=== PATIENT | female | born 1995 | race Caucasian/White ===

== ENCOUNTER 2018-07-04 02:54 | Observation (INO) | payer BC ==
[2018-07-04] MEDS ORDERED: NS 1,000 ML IV ONE ×2 (03:17→05:00)
[2018-07-04] MEDS ORDERED: ONDANSETRON 4 MG/2 ML VIAL ONE ×2 (03:19→10:47)
[2018-07-04] MEDS ORDERED: ONDANSETRON 4 MG/2 ML VIAL IVP ONE (03:22)
[2018-07-04] MEDS ORDERED: HYDROmorphONE/DILAUDID 2 MG/ML INJ IVP ONE (03:22)
--- NOTE | 2018-07-04 03:24 | EDPHY ---
H & P Stated Complaint: GENERAL ABD PAIN X 4 HRS Time Seen by Provider: 07/04/18 03:23 HPI/ROS: HPI CHIEF COMPLAINT: Abdominal pain HISTORY OF PRESENT ILLNESS: This is a 22-year-old female presents emergency room 5 hr of abdominal pain rather diffuse. States approximately 8 hr ago she noticed some upset stomach and cramps but no vomiting. Than her symptoms persisted now she has worsening abdominal pain over the last 4-5 hours. Nausea but no vomiting. Denies diarrhea denies back pain. Patient denies chest pain or shortness of breath she describes as sharp stabbing pain throughout her abdomen. She denies anyone focal area being tender. Denies urinary symptoms. Denies being . Past Medical History: Denies significant medical history Past Surgical History: Denies significant surgical history Social History: Denies drugs alcohol tobacco. Family History: Noncontributory ROS REVIEW OF SYSTEMS: 10 Systems were reviewed and negative with the exception of the elements mentioned in the history of present illness. Exam Constitutional triage nursing summary reviewed, vital signs reviewed, awake/ alert. Vital signs stable triage. Eyes normal conjunctivae and sclera, EOMI, PERRLA. HENT normal inspection, atraumatic, moist mucus membranes, no epistaxis, neck supple/ no meningismus, no raccoon eyes. Respiratory clear to auscultation bilaterally, normal breath sounds, no respiratory distress, no wheezing. Cardiovascular rate normal, regular rhythm, no murmur, no edema, distal pulses normal. Gastrointestinal mildly tender diffusely, no peritoneal signs no rebound, no guarding, normal bowel sounds, no distension, no pulsatile mass. Genitourinary no CVA tenderness. Musculoskeletal no midline vertebral tenderness, full range of motion, no calf swelling, no tenderness of extremities, no meningismus, good pulses, neurovascularly intact. Skin pink, warm, & dry, no rash, skin atraumatic. Neurologic awake, alert and oriented x 3, AAOx3, moves all 4 extremities equally, motor intact, sensory intact, CN II-XII intact, normal cerebellar, normal vision, normal speech. Psychiatric normal mood/affect. Heme/Lymph/Immune no lymphadenopathy. Differential Diagnosis: Differential diagnosis includes but is not limited to and in no particular order: Bowel obstruction, appendicitis, gallbladder disease, diverticulitis, colitis, enteritis, perforated viscus, gastritis, GERD , esophagitis, urinary tract infection, pyelonephritis, kidney stones Medical Decision Making: Plan for this patient IV establishment with IV fluid bolus, IV Dilaudid for pain control IV Zofran for nausea, basic blood work, urinalysis, test, CT scan abdomen pelvis with IV contrast rule out acute appendicitis. Re-evaluation: CT scan abdomen pelvis with IV contrast faxed to me at 4:51 a.m., by [facility] This shows an appendix that is fluid-filled and dilated 9 mm, maybe mild surrounding fat stranding. Please see full dictation of the CT report. Clinically the patient having a white count of this high, abdominal pain rather diffuse and then localized right lower quadrant I think she has a acute appendicitis. Less likely PID. Patient denies any significant vaginal discharge or urinary symptoms, denies any pelvic pain. Pain is located up in her upper abdomen localized into her right lower quadrant. Think PID is unlikely. 0506: I have consult General surgery Dr. Talamantes for acute appendicitis. He will review the patient's scan and evaluate the patient. 2nd L fluid ordered. IV Invanz ordered. Source: Patient - Personal History LMP (Females 10-55): Over 28 Days Ago Current Tetanus Diphtheria and Acellular Pertussis (TDAP): Yes - Medical/Surgical History Hx Asthma: No Hx Chronic Respiratory Disease: No Hx Diabetes: No Hx Cardiac Disease: No Hx Renal Disease: No Hx Cirrhosis: No Hx Alcoholism: No Hx HIV/AIDS: No Hx Splenectomy or Spleen Trauma: No Other PMH: DENIES - Social History Smoking Status: Never smoked Constitutional: Initial Vital Signs Temperature (C) 36.4 C 07/04/18 02:58 Heart Rate 77 07/04/18 02:58 Respiratory Rate 16 07/04/18 02:58 Blood Pressure 111/62 07/04/18 02:58 O2 Sat (%) 97 07/04/18 02:58 O2 Delivery Mode Room Air Allergies/Adverse Reactions: No Known Allergies Allergy (Verified 07/04/18 08:26) Home Medications: Medication Instructions Recorded Acetaminophen [Tylenol ES 500 mg 1,000 mg PO Q8H tab 07/04/18 (*)] Dextroamphetamine/Amphetamine 5 mg PO DAILY@14 PRN 07/04/18 [Adderall 5 mg Tablet] Dextroamphetamine/Amphetamine 20 mg PO DAILY 07/04/18 [Adderall Xr 20 mg Capsule] HYDROmorphone HCL [Dilaudid 2 mg 2 mg PO Q4 #15 tab 07/04/18 (*)] Ketorolac Tromethamine [Toradol 1 tab PO Q6 5 Days tab 07/04/18 10mg tab] Norethindrone-E.estradiol-Iron 1 each PO DAILY 07/04/18 [Taytulla 1 mg-20 Mcg Capsule] Medical Decision Making - Diagnostics Imaging Results: Imaging Impressions Abdomen CT 07/04/18 03:23 Impression: 1. Mild appendicitis. 2. No ovarian mass or evidence of tubo-ovarian abscess. 3. Mild periportal edema may be due to aggressive IV hydration. No biliary dilation. Preliminary report was faxed by [facility] to Emergency Department physician, Dr. Xavier Pascual at 4:51 a.m. on July 04, 2018. DR Red Final report concurs with initial preliminary interpretation. - Data Points Laboratory Results: Laboratory Results 07/04/18 03:40 07/04/18 03:40 Medications Given: Discontinued Medications Acetaminophen (Tylenol) 1,000 mg PO Q8H [facility] Stop: 12/31/18 05:44 Last Admin: 07/04/18 13:09 Dose: 1,000 mg Cefazolin Sodium (Ancef Syringe) Confirm Administered Dose 2 gm .ROUTE .STK-MED ONE Stop: 07/04/18 09:43 Last Admin: 07/04/18 10:38 Dose: 1 gm Fentanyl (Sublimaze) 25 - 100 mcg IVP Q5M PRN PRN Reason: PACU, IMMEDIATE Pain control Stop: 07/04/18 11:19 Last Admin: 07/04/18 11:37 Dose: 50 mcg Heparin Sodium (Porcine) (Heparin Sc Injection) Confirm Administered Dose 10, 000 unit .ROUTE .STK-MED ONE Stop: 07/04/18 09:43 Last Admin: 07/04/18 10:39 Dose: 5,000 unit Hydromorphone HCl (Dilaudid) 0.5 mg IVP EDNOW ONE Stop: 07/04/18 03:23 Last Admin: 07/04/18 03:37 Dose: 0.5 mg Hydromorphone HCl (Dilaudid) 0.2 - 0.4 mg IVP Q1HR PRN PRN Reason: Pain, Breakthrough Stop: 07/14/18 05:37 Last Admin: 07/04/18 13:08 Dose: 0.4 mg Sodium Chloride (Ns) 1,000 mls @ 0 mls/hr IV EDNOW ONE; Wide Open PRN Reason: Protocol Stop: 07/04/18 03:18 Last Admin: 07/04/18 03:34 Dose: 1,000 mls Sodium Chloride (Ns) 1,000 mls @ 0 mls/hr IV ONCE ONE PRN Reason: Wide Open Stop: 07/04/18 05:01 Last Admin: 07/04/18 05:38 Dose: 1,000 mls Ertapenem 1 gm/ Sodium (Chloride) 100 mls @ 200 mls/hr IV EDNOW ONE PRN Reason: Protocol Stop: 07/04/18 05:34 Last Admin: 07/04/18 06:11 Dose: 100 mls Ketorolac Tromethamine (Toradol) 30 mg IVP Q6HRS [facility] Stop: 07/09/18 05:59 Last Admin: 07/04/18 19:13 Dose: Not Given Midazolam HCl (Versed) 2 mg IVP ONCALL ONE Stop: 07/04/18 10:15 Last Admin: 07/04/18 09:57 Dose: 2 mg Miscellaneous Medication ( Control) 1 tab PO DAILY ERIBERTO Stop: 12/31/18 10:59 Last Admin: 07/04/18 13:54 Dose: Not Given Miscellaneous Medication (Dextroamphetamine/Amphetamine [Adderall Xr 20 Mg Capsule]) 20 mg PO DAILY ERIBERTO Stop: 12/31/18 10:59 Last Admin: 07/04/18 14:20 Dose: Not Given Ondansetron HCl (Zofran) 4 mg IVP EDNOW ONE Stop: 07/04/18 03:23 Last Admin: 07/04/18 03:34 Dose: 4 mg Departure - Departure Disposition: [facility] Acute Clinical Impression: Acute appendicitis Qualifiers: Acute appendicitis type: with localized peritonitis Appendicitis gangrene presence: without gangrene Appendicitis perforation presence: without perforation Appendicitis abscess presence: without abscess Qualified Code(s): K35.30 - Acute appendicitis with localized peritonitis, without perforation or gangrene Abdominal pain Qualifiers: Abdominal location: right lower quadrant Qualified Code(s): R10.31 - Right lower quadrant pain Condition: Good
[2018-07-04 03:49] LABS: PLATELET COUNT 338 10^3/uL (150-400)
[2018-07-04] MEDS ORDERED: IOHEXOL 300 mgI/ML (OMNIPAQUE) 150 ML BTL IV ONE (03:49)
[2018-07-04] MEDS ORDERED: ERTAPENEM 1 GM in NS 100 ML IV ONE (05:05)
[2018-07-04] MEDS ORDERED: ONDANSETRON 4 MG/2 ML VIAL IVP PRN ×2 (05:38→10:19)
[2018-07-04] MEDS ORDERED: HYDROmorphONE/DILAUDID 1 MG/ML INJ IVP PRN (05:38)
[2018-07-04] MEDS ORDERED: NS 1,000 ML IV SCH (05:45)
[2018-07-04] MEDS: KETOROLAC 30 MG/1 ML SDV IVP SCH ×3 (06:11→19:13)
[2018-07-04] MEDS: ACETAMINOPHEN 500 MG TAB PO SCH ×2 (06:12→13:09)
[2018-07-04] MEDS ORDERED: HEPARIN 5,000 UNIT/0.5 ML INJ ONE (09:42)
[2018-07-04] MEDS ORDERED: ceFAZolin 1 GM/5 ML SYR ONE (09:42)
[2018-07-04] MEDS ORDERED: PROPOFOL 200 MG/20 ML VIAL ONE (09:50)
[2018-07-04] MEDS ORDERED: LIDOCAINE 2% 5 ML SDV ONE (09:50)
[2018-07-04] MEDS ORDERED: fentaNYL 100 MCG/2 ML INJ ONE ×3 (09:50→11:17)
[2018-07-04] MEDS ORDERED: ROCURONIUM 50 MG/5 ML VIAL ONE (09:50)
[2018-07-04] MEDS ORDERED: MIDAZOLAM 2 MG/2 ML VIAL ONE (09:53)
[2018-07-04] MEDS ORDERED: DEXAMETHASONE 4 MG/ML VIAL ONE (10:10)
[2018-07-04] MEDS ORDERED: MIDAZOLAM 2 MG/2 ML VIAL IVP ONE (10:14)
--- NOTE | 2018-07-04 10:18 | PDANEPAE ---
ANE History of Present Illness lap esme RUBENS Past Medical History - Cardiovascular History Hx Hypertension: No Hx Arrhythmias: No Hx Chest Pain: No Hx Coronary Artery / Peripheral Vascular Disease: No Hx CHF / Valvular Disease: No Hx Palpitations: No - Pulmonary History Hx COPD: No Hx Asthma/Reactive Airway Disease: No Hx Recent Upper Respiratory Infection: No Hx Oxygen in Use at Home: No Hx Sleep Apnea: No - Endocrine History Hx Diabetes: No Hypothyroid: No Hyperthyroid: No Obesity: no ANE Review of Systems Review of systems is: negative Review of Systems: - Exercise capacity Exercise capacity: >=4 METS ANE Patient History - Allergies Allergies/Adverse Reactions: No Known Allergies Allergy (Verified 07/04/18 08:26) - Home Medications Home medications: home medication list seen and reviewed Home Medications: Control 1 tab PO DAILY 07/04/18 [Last Taken Unknown] Dextroamphetamine/Amphetamine [Adderall 5 mg Tablet] 5 mg PO DAILY@14 PRN [Last Taken Unknown] Dextroamphetamine/Amphetamine [Adderall Xr 20 mg Capsule] 20 mg PO DAILY [Last Taken Unknown] - NPO status NPO Since - Liquids (Date): 07/03/18 NPO Since - Liquids (Time): 20:30 NPO Since - Solids (Date): 07/03/18 NPO Since - Solids (Time): 20:30 - Anes Hx Anes Hx: no prior problems - Smoking Hx Smoking Status: Never smoked ANE Labs/Vital Signs - Labs Result Diagrams: 07/04/18 03:40 07/04/18 03:40 - Vital Signs Blood Pressure: 124/76 Heart Rate: 90 Respiratory Rate: 16 O2 Sat (%): 96 Height: 167.64 cm Weight: 61.235 kg ANE Physical Exam - Airway Neck exam: FROM Mallampati Score: Class 1 Mouth exam: normal dental/mouth exam - Pulmonary Pulmonary: no respiratory distress - Cardiovascular Cardiovascular: regular rate and rhythym - ASA Status ASA Status: I, E ANE Anesthesia Plan Anesthesia Plan: general endotracheal anesthesia Urgent/Emergent Case: Rubensherminia singh completed preop but documented later for safe timely pt care
[2018-07-04] MEDS ORDERED: PROMETHAZINE HCL 25 MG/ML INJ IVP PRN (10:19)
[2018-07-04] MEDS ORDERED: METOCLOPRAMIDE 10 MG/2 ML VIAL IVP PRN (10:19)
[2018-07-04] MEDS ORDERED: ALBUTEROL 3 ML DEYVIAL IH PRN (10:19)
[2018-07-04] MEDS ORDERED: HYDROCODONE/APAP 5/325 TAB PO PRN (10:19)
[2018-07-04] MEDS ORDERED: ACETAMINOPHEN 500 MG TAB PO PRN (10:19)
[2018-07-04] MEDS ORDERED: oxyCODONE IR 5 MG TAB PO PRN (10:19)
[2018-07-04] MEDS ORDERED: NALOXONE HCL 0.4 MG/ML INJ IVP PRN (10:19)
[2018-07-04] MEDS ORDERED: HYDROmorphONE/DILAUDID 2 MG/ML INJ IVP PRN (10:19)
--- NOTE | 2018-07-04 10:19 | POSTANESTH ---
Post Anesthetic Evaluation Cardiovascular Status: Normal, Stable Respiratory Status: Normal, Stable Level of Consciousness/Mental Status: Can Participate in Eval, Alert and Oriented Pain Control: Adequate, Prn Tx Ordered Nausea/Vomiting Control: Adequate, Prn Tx Ordered Complications Possibly Related to Anesthesia: None Noted
[2018-07-04] MEDS ORDERED: KETOROLAC 30 MG/1 ML SDV ONE (10:47)
[2018-07-04] MEDS ORDERED: SUGAMMADEX SODIUM 200 MG/2 ML VIAL IVP ONE (10:47)
[2018-07-04] MEDS ORDERED: DEXTROAMPHETAMINE PO PRN (10:59)
[2018-07-04] MEDS ORDERED: AMPHETAMINE PO PRN (10:59)
[2018-07-04] MEDS ORDERED: DEXTROAMPHETAMINE PO SCH (11:00)
[2018-07-04] MEDS ORDERED: AMPHETAMINE PO SCH (11:00)
[2018-07-04] MEDS ORDERED: TAYTULLA PO SCH (11:00)
--- NOTE | 2018-07-04 11:09 | POSTOPPROG ---
Post Op Note Date of Operation: 07/04/18 Surgeon: Steve Talamantes Anesthesia: GET(General Endotracheal) Pre-op Diagnosis: acute appendicitis with mesenteric adenitis Post-op Diagnosis: acute unruptured appendicitis with mesenteric adenitis Indication: acute appendicitis with mesenteric adenitis Procedure: laparoscopic appendectomy Findings: acute unruptured appendicitis with mesenteric adenitis Inf/Abcess present in the surg proc area at time of surgery?: No EBL: Minimal Total fluids administered: 500cc Complications: none Specimen(s): appendix
[2018-07-04] MEDS: fentaNYL 100 MCG/2 ML INJ IVP PRN ×2 (11:18→11:37)
--- NOTE | 2018-07-04 11:35 | GOP ---
[f rep st] OPERATIVE REPORT DATE OF OPERATION: 07/04/2018 SURGEON: Steve Talamantes MD ANESTHESIA: General endotracheal. PREOPERATIVE DIAGNOSIS: Acute appendicitis with mesenteric adenitis. POSTOPERATIVE DIAGNOSIS: Acute unruptured appendicitis with mesenteric adenitis. PROCEDURE PERFORMED: Laparoscopic appendectomy abscess. No abscess identified. FINDINGS: Acute unruptured appendicitis with mesenteric adenitis. SPECIMENS: Appendix. ESTIMATED BLOOD LOSS: Minimal. INDICATIONS: Acute appendicitis and mesenteric adenitis. DESCRIPTION OF PROCEDURE: The patient was placed on the operating table in the supine position. Aft er induction of adequate general endotracheal anesthesia, the abdomen was carefully prepped and drape d. A surgical time-out was carried out and agreed to by all members of the operative team. A transverse suprapubic and oblique left lower quadrant 5 mm incisions were planned. The skin was in cised sharply on both sides. The umbilicus was carefully elevated and a curvilinear incision was mad e in the inferior umbilical fold. All 3 incisions were deepened with Bovie electrocautery. A spread ing technique was used to expose the anterior rectus sheath which was elevated between Allis clamps. It was divided in the midline. Pursestring #0 PDS was placed. The peritoneum was entered. An 11-1 2 mm disposable Kyle trocar was positioned. Intraabdominal insufflation was carried out to 15 mmHg at high flow. The patient was placed in rever se Trendelenburg. A 5 mm left lower quadrant port was placed and then a 5 mm suprapubic port was pat leticia. On examining the abdomen, there was no evidence of inguinal hernias. Ovaries were unremarkable. Rossy tanisha was unremarkable. There is no fluid in the cul-de-sac. There was mesenteric adenitis identified . The appendix was inflamed at its distal 1/2. This was elevated by the mesoappendix, which was div ided with Harmonic Scalpel down to its base. The appendix was transected with a cuff of cecum using a 35 mm powered Endo-SHAYAN stapler. The appendix was placed in EndoCatch bag and delivered via the umb ilical port site. Pneumoperitoneum was re-established. Hemostasis was excellent. The small bowel w as carefully run for a distance of approximately 3 feet. Mesenteric adenitis was again identified. There was no evidence of Meckel's diverticulum. Irrigation with heparin and Ancef-containing irrigan t was carried out. The ports were removed under direct vision. Inverted simple suture of #0 PDS was placed at the midpoint of the infraumbilical midline fascial def ect. This was tied. The pursestring was now tied. The subcutaneous tissue was well irrigated with heparin and Ancef-containing irrigant. Hemostasis was excellent. Inverted simple sutures of #4-0 Vicryl were placed in all incisions. Mast isol and Steri-Strips were placed. Band-Aids were positioned. The patient was transferred to [facility] in stable and satisfactory condition. FLUIDS ADMINISTERED: 500 cc. COMPLICATIONS: None. /[id number]/MODL
[2018-07-04 16:08] VITALS: BP 112/66
--- NOTE | 2018-07-04 19:18 | GDS ---
[f rep st] DISCHARGE SUMMARY DISCHARGE DIAGNOSES: 1. Acute unruptured appendicitis. 2. Mesenteric adenitis. PROCEDURE: Laparoscopic appendectomy. CONDITION AT DISCHARGE: Good. DIET: There are no restrictions on her diet. DIET TEXTURE: There are no restrictions on her diet texture. HOME MEDICATIONS: She will take Tylenol 1000 mg every 8 hours for the next 10 days. She will take T oradol 10 mg every 6 hours for the next 5 days, and use Dilaudid 2 mg every 4 hours as needed for sev ere pain. She will continue her Adderall and her home medication dose rate. She will continue her o ral contraceptive. She will use alternate forms of contraception for the next month in addition to h er oral contraceptive. DISCHARGE INSTRUCTIONS: For the next 3 weeks, she will lift less than 10 pounds, shower only, keep h er Steri-Strips in place, take a multivitamin with 100% of the [employer] of zinc, copper and C daily, and a void constipating foods such as bananas, rice, applesauce, and cheese. She is to watch for signs of infection which include, superficially, redness, warmth, swelling, and tenderness, and on the deep sp fredy, loss of appetite, fevers, chills, abdominal pain, and malaise. She is to follow up with Kenny Mckeon Marthaller, in approximately 2 weeks. She is to make an appointment for that, and at shanna t point, they will be able to obtain her pathology report. HOSPITAL COURSE: The patient was admitted, taken to the operating room, and has done well postoperat ively. She is discharged on the evening on postoperative day #1, having taken regular diet and has p assed gas. Her pain is well-controlled. /[id number]/MODL
== END 2018-07-04 20:10 | disposition home or self-care (01) ==
LOC: FOB 12:58
PROVIDERS: ADMIT Surgery; ATTEND Surgery
PROC: 0DTJ4ZZ Resection of Appendix, Percutaneous Endoscopic Approach (ICD-10-PCS; principal; 2018-07-04 12:15)
DX: K35.80 Unspecified acute appendicitis (principal); I88.0 Nonspecific mesenteric lymphadenitis
CPT/HCPCS: 44970; 74177; G0378; 96365; J1100; J1170; J1335; J1644; J1885; J2250; J2405; J2704; J3010; Q9967

== ENCOUNTER 2018-07-09 20:22 | Emergency (ER) | payer BC ==
--- NOTE | 2018-07-09 20:38 | EDPHY ---
H & P Time Seen by Provider: 07/09/18 20:36 HPI/ROS: CHIEF COMPLAINT: Chest pain, abdominal pain, palpitations HISTORY OF PRESENT ILLNESS: Patient presents the ED with complaints of colicky chest pain, abdominal pain and palpitations which have been occurring today. The patient did have a uneventful appendectomy 5 days ago. She was discharged home and has been taking Toradol. She stop taking the medication yesterday. She did take 1 or 2 Dilaudid tablets early in the course of her discharge. The patient denies any asymmetric calf pain or swelling. At this point time she is symptom free. The patient reports that she has not experienced these type of symptoms before in the past. They are all linked when they occur. The patient denies significant past medical history outside of her appendectomy. She reports that she is resumed normal bowel movements. She denies any melena or hematemesis. REVIEW OF SYSTEMS: A comprehensive 10 point review of systems is otherwise negative aside from elements mentioned in the history of present illness. Source: Patient Exam Limitations: No limitations - Medical/Surgical History Hx Asthma: No Hx Chronic Respiratory Disease: No Hx Diabetes: No Hx Cardiac Disease: No Hx Renal Disease: No Hx Cirrhosis: No Hx Alcoholism: No Hx HIV/AIDS: No Hx Splenectomy or Spleen Trauma: No Other PMH: DENIES - Social History Smoking Status: Never smoked - Physical Exam Exam: General Appearance: Alert, no distress Eyes: Pupils equal and round no pallor or injection ENT, Mouth: Mucous membranes moist Respiratory: There are no retractions, lungs are clear to auscultation Cardiovascular: Regular rate and rhythm Gastrointestinal: Abdomen is soft, normal bowel sounds, no peritoneal signs, surgical incisions clean dry and intact Neurological: 5/5 strength noted all 4 extremities Skin: Warm and dry, no rashes Musculoskeletal: Neck is supple nontender Extremities: No asymmetric calf pain or swelling. Psychiatric: Patient is oriented X 3, there is no agitation Constitutional: Initial Vital Signs Temperature (C) 36.9 C 07/09/18 20:35 Heart Rate 102 H 07/09/18 20:35 Respiratory Rate 18 07/09/18 20:35 Blood Pressure 145/98 H 07/09/18 20:35 O2 Sat (%) 97 07/09/18 20:35 O2 Delivery Mode Room Air Allergies/Adverse Reactions: No Known Allergies Allergy (Verified 07/09/18 20:34) Home Medications: Medication Instructions Recorded Dextroamphetamine/Amphetamine 5 mg PO DAILY@14 PRN 07/04/18 [Adderall 5 mg Tablet] Dextroamphetamine/Amphetamine 20 mg PO DAILY 07/04/18 [Adderall Xr 20 mg Capsule] Norethindrone-E.estradiol-Iron 1 each PO DAILY 07/04/18 [Taytulla 1 mg-20 Mcg Capsule] Medical Decision Making - Diagnostics EKG Interpretation: EKG: Complete interpretation has been separately recorded in the [employer] archive. Summary impression: Sinus rhythm, rate 92 Imaging Results: Imaging Impressions Chest X-Ray 07/09/18 21:17 Impression: No pneumothorax, pleural effusion, or consolidative airspace opacities to suggest lobar pneumonia. ED Course/Re-evaluation: Patient presents to the ED with paroxysmal symptoms of chest pain, abdominal pain, and upset stomach and palpitations. Patient is noted to have stable vital signs in the emergency department. Her EKG demonstrates no evidence of an arrhythmia. Patient was asymptomatic regarding her chest and respiratory symptoms at the time of my evaluation and remained asymptomatic throughout her stay in the ED. She did complain of some dyspepsia. She was given a GI cocktail. Patient has no evidence of a concerning leukocytosis. The patient's chest x- ray demonstrates no evidence of acute disease. Her urinalysis demonstrates no evidence of an infection. I reassessed the patient at 10:00 p.m.. She is feeling better. She does endorse some positional symptoms. I do believe the symptoms are related to dyspepsia in the setting of NSAID usage. I do not feel that CT imaging of the chest abdomen is clinically indicated at this point time. Acute is reasonable have the patient begin Maalox and Zantac. I have given her customary return precautions that her diagnosis is somewhat uncertain that should she have any progressive or worsening symptoms I would like to see her back in the ED in 12 hr for recheck. She should return sooner for markedly worsening symptoms. Differential Diagnosis: Differential diagnosis considered includes dyspepsia, esophageal spasm, peptic ulcer disease, pneumonia, pneumoperitoneum, medication side effect - Data Points Laboratory Results: Laboratory Results 07/09/18 20:45 07/09/18 20:45 07/09/18 07/09/18 07/09/18 20:45 20:45 20:45 WBC 11.71 10^3/uL H 10^3/uL (3.80-9.50) RBC 4.83 10^6/uL 10^6/uL (4.18-5.33) Hgb 14.6 g/dL g/dL (12.6-16.3) Hct 43.3 % % (38.0-47.0) MCV 89.6 fL fL (81.5-99.8) MCH 30.2 pg pg (27.9-34.1) MCHC 33.7 g/dL g/dL (32.4-36.7) RDW 12.2 % % (11.5-15.2) Plt Count 413 10^3/uL H 10^3/uL (150-400) MPV 9.7 fL fL (8.7-11.7) Neut % (Auto) 69.6 % % (39.3-74.2) Lymph % (Auto) 21.9 % % (15.0-45.0) [place] % (Auto) 6.8 % % (4.5-13.0) Eos % (Auto) 0.8 % % (0.6-7.6) Baso % (Auto) 0.4 % % (0.3-1.7) Nucleat RBC Rel Count 0.0 % % (0.0-0.2) Absolute Neuts (auto) 8.15 10^3/uL H 10^3/uL (1.70-6.50) Absolute Lymphs (auto) 2.56 10^3/uL 10^3/uL (1.00-3.00) Absolute Monos (auto) 0.80 10^3/uL 10^3/uL (0.30-0.80) Absolute Eos (auto) 0.09 10^3/uL 10^3/uL (0.03-0.40) Absolute Basos (auto) 0.05 10^3/uL 10^3/uL (0.02-0.10) Absolute Nucleated RBC 0.00 10^3/uL 10^3/uL (0-0.01) Immature Gran % 0.5 % % (0.0-1.1) Immature Gran # 0.06 10^3/uL 10^3/uL (0.00-0.10) Sodium 135 mEq/L mEq/L (135-145) Potassium 3.9 mEq/L mEq/L (3.5-5.2) Chloride 101 mEq/L mEq/L (97-110) Carbon Dioxide 24 mEq/l mEq/l (22-31) Anion Gap 10 mEq/L mEq/L (6-14) BUN 13 mg/dL mg/dL (7-23) Creatinine 0.8 mg/dL mg/dL (0.6-1.0) Estimated GFR > 60 Glucose 92 mg/dL mg/dL (70-100) Calcium 9.8 mg/dL mg/dL (8.5-10.4) Beta HCG, Qual NEGATIVE Urine Color Urine Appearance Urine pH Ur Specific [place] Urine Protein Urine Ketones Urine Blood Urine Nitrate Urine Bilirubin Urine Urobilinogen Ur Leukocyte Esterase Urine RBC Urine WBC Ur Epithelial Cells Urine Bacteria Urine Mucus Urine Glucose 07/09/18 20:42 WBC RBC Hgb Hct MCV MCH MCHC RDW Plt Count MPV Neut % (Auto) Lymph % (Auto) [place] % (Auto) Eos % (Auto) Baso % (Auto) Nucleat RBC Rel Count Absolute Neuts (auto) Absolute Lymphs (auto) Absolute Monos (auto) Absolute Eos (auto) Absolute Basos (auto) Absolute Nucleated RBC Immature Gran % Immature Gran # Sodium Potassium Chloride Carbon Dioxide Anion Gap BUN Creatinine Estimated GFR Glucose Calcium Beta HCG, Qual Urine Color YELLOW Urine Appearance CLEAR Urine pH 6.0 (5.0-7.5) Ur Specific [place] 1.017 (1.002-1.030) Urine Protein NEGATIVE (NEGATIVE) Urine Ketones NEGATIVE (NEGATIVE) Urine Blood 1+ H (NEGATIVE) Urine Nitrate NEGATIVE (NEGATIVE) Urine Bilirubin NEGATIVE (NEGATIVE) Urine Urobilinogen NEGATIVE EU EU (0.2-1.0) Ur Leukocyte Esterase TRACE H (NEGATIVE) Urine RBC 1-3 /hpf /hpf (0-3) Urine WBC 1-3 /hpf /hpf (0-3) Ur Epithelial Cells TRACE /lpf /lpf (NONE-1+) Urine Bacteria TRACE /hpf H /hpf (NONE SEEN) Urine Mucus TRACE /lpf /lpf (NONE-1+) Urine Glucose NEGATIVE (NEGATIVE) Medications Given: Discontinued Medications Al Hydroxide/Mg Hydroxide (Maalox Susp) 30 ml PO ONCE ONE Stop: 07/09/18 21:02 Last Admin: 07/09/18 21:08 Dose: 30 ml Hyoscyamine Sulfate (Levsin, Hyomax-Sl) 0.25 mg PO ONCE ONE Stop: 07/09/18 21:02 Last Admin: 07/09/18 21:07 Dose: 0.25 mg Sodium Chloride (Ns) 1,000 mls @ 0 mls/hr IV EDNOW ONE; Wide Open PRN Reason: Protocol Stop: 07/09/18 20:41 Last Admin: 07/09/18 20:43 Dose: 1,000 mls Lidocaine (Lidocaine 2% Viscous) 15 ml PO ONCE ONE Stop: 07/09/18 21:02 Last Admin: 07/09/18 21:08 Dose: 15 ml Departure - Departure Disposition: Home, Routine, Self-Care Clinical Impression: Palpitations, Dyspepsia Condition: Good Instructions: Indigestion (ED) Additional Instructions: 1. Maalox as needed for symptoms. 2. Please begin taking Zantac 150 mg twice a day. 3. Based upon your examination currently I do not feel that additional imaging studies are warranted. You should return to the emergency department in 12 hr for recheck if your continued to have any ongoing concerning symptoms. You should return to the ED sooner for markedly worsening symptoms or other concerns.
[2018-07-09] MEDS ORDERED: NS 1,000 ML IV ONE (20:40)
[2018-07-09 20:54] LABS: PLATELET COUNT 413 10^3/uL (150-400)
[2018-07-09] MEDS ORDERED: MAG HYDROX/AL HYDROX/SIMETH 30 ML UDCUP PO ONE (21:01)
[2018-07-09] MEDS ORDERED: HYOSCYAMINE SULFATE 0.125 MG TAB PO ONE (21:01)
[2018-07-09] MEDS ORDERED: LIDOCAINE 2% VISCOUS 15 ML UDCUP PO ONE (21:01)
--- NOTE | 2018-07-09 21:19 | CPEKG ---
Test Reason : OPEN Blood Pressure : / mmHG Vent. Rate : 092 BPM Atrial Rate : 091 BPM P-R Int : 129 ms QRS Dur : 087 ms QT Int : 355 ms P-R-T Axes : 041 066 035 degrees QTc Int : 440 ms Sinus rhythm Confirmed by Rogelio Diaz ([id number]) on 07/09/2018 9:18:40 PM Referred By: Rogelio Diaz Confirmed By:Rogelio Diaz
[2018-07-09 22:38] VITALS: BP 141/97
== END 2018-07-09 22:36 | disposition home or self-care (01) ==
DX: R00.2 Palpitations (principal); R10.13 Epigastric pain; E86.9 Volume depletion, unspecified; Z98.890 Other specified postprocedural states